=== PATIENT | female | born 1945 | race Two or more races ===

== ENCOUNTER 2024-09-08 08:23 | Emergency (ER) | payer OTHER ==
[~2024-09-08] VITALS: Ht 160 cm; Wt 60.0 kg
[2024-09-08 09:02] VITALS: PULSE 82; RESP 14; O2SAT 95
--- NOTE | 2024-09-08 09:32 | ED.PDOC ---
History of Present Illness HPI Comments 79F BIBA w/ no prior Hx associated to the c/c of a nosebleed. Pt was in a room with daughter and possibly daughters spouse, where the daughter stated that this was her 5th nosebleed this year. Pt reports that the nosebleed started at 0700 this morning after she got up from bed. Pt notes that she has been using a CPAP machine at night and informed her that, might be the reason for the nosebleeds. Pt states that she did go see a ENT and was informed to use Vaseline for moist and use cotton balls for the bleeding. Denies chills, fever, N/V/D, SOB, CP or no other associated symptoms, modifiers, recent injuries or sick contacts at this time. Chief Complaint: Nose Bleed Time Seen by MD: 09:10 Primary Care Provider: MANAN Norman Notes: Nurses Notes, Wearing Apparel Folder Notes, Medications, Allergies Allergies: Coded Allergies: NO KNOWN ALLERGIES (Unverified , 09/08/24) Information Source: Patient, Relative Mode of Arrival: EMS Severity: Moderate Timing: Hours Duration: Since onset, Hours Prehospital treatment: None Past Medical History PAST MEDICAL HISTORY: Denies Surgical History: Denies all surgeries DIRECTOR BIOSTATISTICS History: No Pertinent DIRECTOR BIOSTATISTICS History Family History Family History: Reviewed,noncontributory to illness, Unknown Social History Smoker: Non-Smoker Alcohol: Denies ETOH Use Drugs: Denies Drug Use Lives In: Home Constitutional: denies: chills, diaphoresis, fatigue, fever, malaise, sweats, weakness, others EENTM: reports: nose bleeding; denies: blurred vision, double vision, ear bleeding, ear discharge, ear drainage, ear pain, ear ringing, eye pain, eye redn ess, hearing loss, mouth pain, mouth swelling, nasal discharge, nose congestion, nose pain, photophobia, tearing, throat pain, throat swelling, voice changes, others Respiratory: denies: cough, hemoptysis, orthopnea, SOB at rest, shortness of breath, SOB with excertion, stridor, wheezing, others Cardiovascular: denies: chest pain, dizzy spells, diaphoresis, Dyspnea on exertion, edema, irregular heart beat, left arm pain, lightheadedness, palpitations, PND, syncope, others Gastrointestinal: denies: abdomen distended, abdominal pain, blood streaked bowels, constipated, diarrhea, dysphagia, difficulty swallowing, hematemesis, melena, nausea, poor appetite, poor fluid intake, rectal bleeding, rectal pain, vomiting, others Genitourinary: denies: abnormal vagina bleeding, burning, dyspareunia, dysuria, flank pain, frequency, hematuria, incontinence, pain, , vagina discharge, urgency, others Neurological: denies: dizziness, fainting, headache, left sided numbness, left sided weakness, numbness, paresthesia, pre-existing deficit, right sided numbness, right sided weakness, seizure, speech problems, tingling, tremors, weakness, others Musculoskeletal: denies: back pain, gout, joint pain, joint swelling, muscle pain, muscle stiffness, neck pain, others Integumetry: denies: bruises, change in color, change in hair/nails, dryness, laceration, lesions, lumps, rash, wounds, others Allergic/Immunocompromised: denies: Difficulty Healing, Frequent Infections, Hives, Itching, others Hematologic/Lymphatic: denies: anemia, blood clots, easy bleeding, easy bruising, swollen glands, others Endocrine: denies: excessive hunger, excessive sweating, excessive thirst, excessive urination, flushing, intolerance to cold, intolerance to heat, unexplained weight gain, unexplained weight loss, others Psychiatric: denies: anxiety, bipolar disorder, depression, hopeless, panic disorder, schizophrenia, sleepless, suicidal, others All Other Systems: Reviewed and Negative Physical Exam General Appearance: Moderate Distress, Normal HEENT: Pharynx Normal, TMs Normal, Other (Nasal packing in place) Neck: Full Range of Motion, Non-Tender, Normal, Normal Inspection Respiratory: Chest Non-Tender, Lungs Clear, No Accessory Muscle Use, No Respiratory Distress, Normal Breath Sounds Cardiovascular: No Edema, No JVD, No Murmur, No Gallop, Normal Peripheral Pulses, Regular Rate/Rhythm Breast Exam: Deferred Gastrointestinal: No Organomegaly, Non Tender, No Pulsatile Mass, Normal Bowel Sounds, Soft Genitalia: Deferred Pelvic: Deferred Rectal: Deferred Extremities: No calf tenderness, Normal capillary refill, Normal inspection, Normal range of motion, Non-tender, No pedal edema Musculoskeletal : Apperance: Normal Neurologic: Alert, 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 Was a procedure done?: No Differential Dx Considerations may include: Nosebleed X-Ray, Labs, Meds, VS Vital Signs Date Time Temp Pulse Resp B/P (MAP) Pulse Ox O2 Delivery O2 Flow Rate FiO2 09/08/24 09:16 78 09/08/24 09:02 82 14 95 Room Air* 0 21 09/08/24 08:50 97.8 82 14 143/74 (97) 95 97.8 09/08/24 08:25 98.2 84 18 138/82 (100) 96 98.2 Patient alert. She did have nosebleed prior to coming to the ER. Vitals stable. Answering questions. No active bleeding on examination. She does use CPAP. Explained to the patient that the dryness of the mucous nine with has causing the nosebleed. Instructed her to keep her nasal mucosa moist. Spoke with [facility] physician [phone]. Was told to follow up with her primary care physician. Was told to come back if there is any problem. Time of 1ST Reevaluation: 09:40 Reevaluation 1ST: Improved Patient Education/Counseling: Diagnosis, Treatment, Prognosis Family Education/Counseling: Diagnosis, Treatment, Prognosis Departure 1 Departure Time of Disposition: 09:34 Impression: Primary Impression: Nosebleed Disposition: 01 HOME / SELF CARE / HOMELESS Condition: Good Discharged With: Self Critical Care Note Critical Care Time?: No Stability Stability form required: No Heart Score Heart Score: Heart Score Response (Comments) Value History N/A 0 EKG N/A 0 Age N/A 0 Risk Factors N/A 0 Troponin N/A 0 Total 0 I personally scribed for ROLAND ROSE MD ([email or web address]) on 09/08/24 at 09:32. Electronically submitted by Jacobo Mcleod ([email or web address]). ROLAND ROSE MD Sep 08, 2024 09:32
[2024-09-08 11:23] VITALS: BP 164/71; PULSE 78; RESP 18; TEMP 98.1; O2SAT 94
== END 2024-09-08 11:52 | disposition home or self-care (01) ==
LOC: EDBD 08:23 → ER 08:23
DX: R04.0 Epistaxis (principal)